=== PATIENT | female | born 1970 | race Two or more races ===

== ENCOUNTER 2021-06-09 00:47 | Emergency (ER) | payer MEDICAID ==
[~2021-06-09] VITALS: Ht 162.6 cm; Wt 82.0 kg
[2021-06-09] MEDS ORDERED: HYDRALAZINE 20MG/ML VIAL IV ONE (01:45)
[2021-06-09 02:32] LABS: BASOPHILS % 0.9 % (0.0-2.0); EOSINOPHILS % 1.6 % (0.0-5.0); HEMATOCRIT. 38.3 % (36.0-48.0); HEMOGLOBIN. 13.1 g/dL (12.0-16.0); MEAN CORPUSCULAR HEMOGLOBIN 32.2 pg (28.0-32.0); MEAN PLATELET VOLUME 8.8 fl (7.4-10.4); MONOCYTES % 8.6 % (2.0-8.0); NEUTROPHILS % 32.9 % (40.0-76.0); PLATELET 200 x1000/uL (130-400); RED BLOOD CELL COUNT 4.08 mill/uL (4.2-5.4); RED CELL DISTRIBUTION WIDTH 13.2 % (11.6-14.6)
[2021-06-09 02:33] LABS: CHLORIDE 107 mEq/L (98-107)
[2021-06-09 03:32] VITALS: BP 143/84
== END 2021-06-09 03:58 | disposition home or self-care (01) ==
LOC: ER 00:47
DX: I10 Essential (primary) hypertension (principal); Z98.890 Other specified postprocedural states
CPT/HCPCS: 36415; 71045; 80053; 83880; 84484; 85025; 93005; 96374; 99285; J0360

== ENCOUNTER 2023-11-05 18:29 | Emergency (ER) | payer MEDICAID ==
[~2023-11-05] VITALS: Ht 167.6 cm; Wt 75.0 kg
[2023-11-05 18:36] VITALS: BP 128/88; RESP 18; TEMP 97.7; O2SAT 98
[2023-11-05 18:37] VITALS: PULSE 72
[2023-11-05] MEDS ORDERED: METHOCARBAMOL 500MG TABLET PO ONE (19:30)
[2023-11-05] MEDS ORDERED: IBUPROFEN 600MG TABLET PO ONE (19:30)
[2023-11-05 19:56] LABS: BASOPHILS % 0.3 % (0.0-2.0); EOSINOPHILS % 2.5 % (0.0-5.0); HEMATOCRIT. 35.7 % (36.0-48.0); HEMOGLOBIN. 11.9 g/dL (12.0-16.0); LYMPHOCYTES % 46.6 % (20.0-50.0); MEAN CORPUSCULAR HEMOGLOBIN 32.3 pg (28.0-32.0); MEAN CORPUSCULAR HGB CONC 33.2 g/dL (31.0-37.0); MEAN CORPUSCULAR VOLUME 97.1 fL (81.0-99.0); MEAN PLATELET VOLUME 8.4 fl (7.4-10.4); MONOCYTES % 9.3 % (2.0-8.0); NEUTROPHILS % 41.3 % (40.0-76.0); PLATELET 203 x1000/uL (130-400); RED BLOOD CELL COUNT 3.67 mill/uL (4.2-5.4); RED CELL DISTRIBUTION WIDTH 13.4 % (11.6-14.6); WHITE BLOOD COUNT 5.4 x1000/uL (4.5-11.0)
[2023-11-05 20:04] LABS: CHLORIDE 108 mEq/L (98-107); POTASSIUM 2.9 mEq/L (3.5-5.1); SODIUM 140 mEq/L (136-145)
[2023-11-05 20:05] LABS: CARBON DIOXIDE 27 mEq/L (21-32)
[2023-11-05 20:06] LABS: CALCIUM 9.7 mg/dL (8.7-10.4)
[2023-11-05 20:10] LABS: CREATININE 0.8 mg/dL (0.6-1.0); GLUCOSE 95 mg/dL (70-105); UREA NITROGEN BLOOD 10 mg/dL (9-23)
[2023-11-05 20:11] LABS: TROPONIN I HIGH SENSITIVITY 4 ng/L (3.0-34)
[2023-11-05] MEDS ORDERED: METH-653 MT (21:06)
[2023-11-05] MEDS ORDERED: IBUP-2029 MT (21:06)
[2023-11-05] MEDS: METHOCARBAMOL 500MG TABLET PO NR (22:06)
[2023-11-05] MEDS: IBUPROFEN 600MG TABLET PO NR (22:07)
== END 2023-11-05 22:12 | disposition home or self-care (01) ==
LOC: ER 18:29
DX: S29.012A Strain of muscle and tendon of back wall of thorax, initial encounter (principal); R07.89 Other chest pain; I10 Essential (primary) hypertension; E03.9 Hypothyroidism, unspecified; Z98.890 Other specified postprocedural states; X58.XXXA Exposure to other specified factors, initial encounter; Y93.89 Activity, other specified; Y92.89 Other specified places as the place of occurrence of the external cause; Y99.8 Other external cause status
CPT/HCPCS: 36415; 71045; 80048; 84484; 85025; 93005; 99285